=== PATIENT | male | born 1985 | race Caucasian/White ===

== ENCOUNTER 2019-08-06 09:46 | Day surgery (SDC) | payer BC ==
[~2019-08-06 09:46] MED LIST: Lactated Ringers 1,000 ML IV SCH; Sodium Chloride 0.9% 10 ML Syringe FLUSH PRN
[2019-08-06] MEDS ORDERED: Ketamine 500 mg/10 ML MDV IV ONE (09:47)
[2019-08-06] MEDS ORDERED: Propofol 200 MG/20 ML SDV IV ONE (09:47)
[2019-08-06] MEDS ORDERED: Lidocaine 2% 5 ML SDV INJECT ONE (09:47)
[2019-08-06] MEDS ORDERED: Lidocaine 2% 5 ML SDV ONE (09:47)
[2019-08-06] MEDS ORDERED: Midazolam 1 MG/ML 2 ML SDV IV ONE (09:47)
--- NOTE | 2019-08-06 10:52 | PCM.PN ---
- General Info Date of Service: 08/06/19 - Review of Systems Systems Review Comment:: 34-year-old male with persistent symptoms of foreign body in his throat and difficulty swallowing comes for EGD. He is medically stable with no significant changes from his recent evaluation. Physical exam today: Neck without mass swelling or tenderness Heart regular without murmur Lungs clear with equal breath sounds and no wheezing Abdomen soft nontender with no abdominal masses I have again reviewed the proposed upper endoscopy with the patient. He agrees to proceed accepting risks. - Patient Data Vitals - Most Recent: Last Vital Signs Temp 97.9 F 08/06/19 10:32 Pulse 60 08/06/19 10:32 Resp 18 08/06/19 10:32 BP 142/92 H 08/06/19 10:32 Pulse Ox 99 08/06/19 10:32 Weight - Most Recent: 159 lb Med Orders - Current: Current Medications Lactated Ringer's (Ringers, Lactated) 1,000 mls @ 125 mls/hr IV ASDIRECTED JOVANNY Last Admin: 08/06/19 10:30 Dose: 125 mls/hr Sodium Chloride (Saline Flush) 10 ml FLUSH ASDIRECTED PRN PRN Reason: Keep Vein Open Sepsis Event Note - Focused Exam Vital Signs: Vital Signs Temp Pulse Resp BP Pulse Ox 08/06/19 10:32 97.9 F 60 18 142/92 H 99 Date Exam was Performed: 08/06/19 Time Exam was Performed: 10:50 - Problem List Review Problem List Initiated/Reviewed/Updated: Yes - My Orders Last 24 Hours: My Active Orders 08/05/19 13:27 Resuscitation Status Routine 08/05/19 Dinner Nothing Per Oral Diet [DIET] 08/06/19 09:45 Patient Status [ADT] Routine Patient to Empty Bladder [RC] ASDIRECTED Verify Patient Consent Obtain [RC] ASDIRECTED Lactated Ringers [Ringers, Lactated] 1,000 ml IV ASDIRECTED Sodium Chloride 0.9% [Saline Flush] 10 ml FLUSH ASDIRECTED PRN Peripheral IV Insertion Adult [OM.PC] Routine - Assessment Assessment:: Foreign body in throat - Plan Plan:: EGD
--- NOTE | 2019-08-06 11:19 | PCM.OPNOTE ---
- General Post-Op/Procedure Note Date of Surgery/Procedure: 08/06/19 Operative Procedure(s): EGD and Laryngoscopy Findings: Inflammation of lower aspect Right Tonsil but no foreign body seen Remainder of EGD appeared normal Pre Op Diagnosis: Foreign Body Throat Post-Op Diagnosis: Right tosilar inflammation Anesthesia Technique: MAC Primary Surgeon: Dawson Gordon Pathology: none EBL in mLs: 0 Complications: None Condition: Good
--- NOTE | 2019-08-06 12:32 | OR ---
DATE OF OPERATION: 08/06/2019 SURGEON: Dawson Gordon MD PREOPERATIVE DIAGNOSIS: Foreign body in the throat. POSTOPERATIVE DIAGNOSIS: Tonsillar inflammation. OPERATION PERFORMED: Esophagogastroduodenoscopy and laryngoscopy. INDICATIONS FOR SURGERY: This 34-year-old male has developed the sensation of a foreign body in the right side of his throat. This has persisted for several days. Even though he is able to swallow and was also able to breathe without difficulty, the feeling of a foreign body persists and evaluation is indicated. FINDINGS: No foreign body is seen on examination today. The patient does have some inflammation of the most inferior aspect of the right tonsil, although the tonsils themselves do not appear to be enlarged or swollen. The deepest aspect of the right tonsil shows some hyperemia and localized inflammation. The remainder of the oral and hypopharynx appear normal. The esophagus, stomach, and duodenum also appear normal. PROCEDURE IN DETAIL: The patient was taken to the procedure room. He was given intravenous sedation, and his throat was topically anesthetized. Laryngoscopy with the GlideScope was initially performed with careful examination being performed as tolerated by the patient. It was felt that good examination of the lower aspect of the oropharynx as well as the epiglottis was carried out. There was an area of localized inflammation right in the region where the patient had identified his abnormal sensation. After examining with the GlideScope, the gastroscope was advanced into the mouth through a mouth guard. This was then carefully advanced down through the esophagus, stomach, and into the duodenum where examination to the third portion was performed. The lining of the duodenum appeared normal. The scope was withdrawn back into the stomach and retroflexed examination of the fundus was performed including full examination of the fundus. The GE junction was then carefully examined and the esophagus was re-examined as the scope was removed. The patient tolerated the procedure well and left the procedure room in satisfactory condition. ESTIMATED BLOOD LOSS: 0. COMPLICATIONS: None. PROGNOSIS: Good. /[id number] MAYITO/FILIBERTO
== END 2019-08-06 12:10 | disposition home or self-care (01) ==
LOC: FB.SDS 09:46
PROVIDERS: ATTEND Surgery
DX: J03.90 Acute tonsillitis, unspecified (principal); F41.9 Anxiety disorder, unspecified; K21.9 Gastro-esophageal reflux disease without esophagitis; F17.210 Nicotine dependence, cigarettes, uncomplicated
CPT/HCPCS: J2001; J2250; J2704; J7120